=== PATIENT | female | born 1950 | race Caucasian/White ===

== ENCOUNTER 2017-09-17 11:06 | Outpatient (CLI) | payer MEDICARE, OTHER ==
--- NOTE | 2017-09-17 13:15 | Ultrasound Report ---
RIGHT UPPER QUADRANT ULTRASOUND: 09/17/2017 CLINICAL INDICATION: Elevated LFTs. TECHNIQUE: Real-time scanning was performed with retail wireless sales representative static images obtained. FINDINGS: The liver measures 12.1 cm. There are multiple echogenic structures scattered throughout b oth lobes of the liver, with the largest measuring 3.9 cm. These likely all represent hemangiomas, bu t given the elevated LFTs, liver MRI is recommended to exclude a suspicious lesion. The common bile d uct measures 3 mm. The gallbladder is unremarkable. There is a 2.2 cm periportal node noted. The righ t kidney measures 10.4 cm, and appears unremarkable. No free fluid is present. IMPRESSION: MULTIPLE ECHOGENIC LESIONS SCATTERED THROUGHOUT BOTH LOBES OF THE LIVER, LIKELY REPRESEN TING MULTIPLE HEMANGIOMAS. ENLARGED PERIPORTAL NODE. GIVEN THESE FINDINGS, AND THE ELEVATED LFTs, [facility] MRI WITH AND WITHOUT CONTRAST IS RECOMMENDED. JOB #: [id number] EXT JOB #:[id number]
== END 2017-09-17 11:07 | disposition home or self-care (01) ==
LOC: DI 11:06
PROVIDERS: ATTEND Internal Medicine
DX: K76.9 Liver disease, unspecified (principal); R59.0 Localized enlarged lymph nodes
CPT/HCPCS: 76705

== ENCOUNTER 2017-09-23 09:24 | Outpatient (CLI) | payer MEDICARE, OTHER ==
--- NOTE | 2017-09-24 10:04 | Mammography Report ---
DIGITAL SCREENING MAMMOGRAM: 09/23/2017 COMPARISON: 07/04/2016, 10/06/2013, 09/25/2010, and 09/06/2010. TECHNIQUE: Bilateral digital CC, exaggerated CC, and MLO projections. FINDINGS: The breast tissue is heterogeneously dense. There is no dominant mass, architectural dist ortion, skin thickening, suspicious new microcalcifications, or interval change. IMPRESSION: NEGATIVE. BIRADS CATEGORY 1. SUGGEST ROUTINE FOLLOWUP IN 12 MONTHS. STANDARD QUALIFYING STATEMENTS 1. This examination was reviewed with the aid of Computer-Aided Detection (CAD). 2. A negative or benign imaging report should not delay biopsy if clinically suspicious findings are present. Consider surgical consultation if warranted. More than 5% of cancers are not identified by i maging. 3. Dense breasts may obscure an underlying neoplasm. JOB #: [id number] EXT JOB #:[id number]
== END 2017-09-23 09:25 | disposition home or self-care (01) ==
LOC: DI.S 09:24
PROVIDERS: ATTEND Internal Medicine
DX: Z12.31 Encounter for screening mammogram for malignant neoplasm of breast (principal)
CPT/HCPCS: 77067

== ENCOUNTER 2017-10-06 12:50 | Outpatient (CLI) | payer MEDICARE, OTHER ==
[~2017-10-06 12:50] MED LIST: GADOBUTROL 7.5 MMOL/7.5 ML VIAL ONE
[2017-10-06 13:26] LABS: CREATININE 0.7 mg/dL (0.4-1.0)
[2017-10-06] MEDS ORDERED: GADOBUTROL 7.5 MMOL/7.5 ML VIAL IVP ONE (14:48)
--- NOTE | 2017-10-07 09:49 | MRI Report ---
EXAM: MR ABDOMEN WITH AND WITHOUT CONTRAST (MR LIVER) EXAM DATE: 10/06/2017 02:51 PM. CLINICAL HISTORY: Multiple liver lesions on ultrasound. COMPARISON: 09/17/2017. TECHNIQUE: Multiplanar breath-hold T1, T2 and diffusion-weighted sequences obtained through the abdom en on an MR scanner. Images obtained before and after administration of 6 mL Gadavist intravenous con trast. Multiphase postcontrast images obtained of the liver and abdomen. FINDINGS: Lung Bases: Lung bases are clear. Included portions of the heart are unremarkable. Liver: Signal intensity of the liver is within normal limits. Liver is not enlarged. There are approx imately 10 hepatic lesions, which are of increased signal on the T2-weighted sequences and decreased signal intensity on the precontrast and T1-weighted sequences. The largest lesion centrally is along segment 4A and segment 8 by the middle hepatic vein just anteri or to the IVC, measuring 4.3 x 3.7 x 3.7 cm. Lesion present in the left lobe in segment 2 measures 1.4 x 1.1 x 1 cm. More inferiorly at the juncti on of segment 2/3 , the lesion measures 2.1 x 1.6 x 1.7 cm, adjacent to a smaller lesion although sim ilar in size measuring 1.5 x 1.3 x 1.1 cm, with an adjacent lesion between the lesions in segment 2/3 and segment 2. Additionally, in the dome of the liver are 2 adjacent lesions in segment 8. The largest measures 1.6 x 1.2 x 1.4 cm. There are approximately 5 lesions in the right lobe of the liver more inferiorly in s egment 6 and segment 5, the largest in segment 6 measuring 1 x 1 x 1.1 cm, while the most inferior le moe in segment 6 measures 1 x 0.9 x 0.5 cm. All lesions show some enhancement on the arterial phase images. The smaller lesions in the right lobe demonstrate more prominent increase in vascularity on the arterial phase images while the remainder of the lesions have some peripheral discontinuous nodular enhancement which progresses over the cours e of the venous and more delayed images. The lesions show progressive filling on the 5 minute delayed images, and some have completely filled in and persistently enhance. The lesions are all consistent with hemangiomas. No other hepatic lesions are identified. Patent portal vein. Some dropout of signal is noted of the l iver between the in- and [id number] images, typically seen with fatty replacement. Gallbladder: The gallbladder is partially distended and appears normal with no wall thickening or sto ne. Pancreas: Homogeneous signal intensity of the pancreas. Pancreatic duct is seen throughout its entire ty. There appears to be a separate orifice into the duodenum between the common bile duct and pancrea tic duct without a common channel. Pancreatic duct measures up to 2 mm. No peripancreatic edema or pa ncreatic lesions are identified. Spleen: The spleen appears normal. Kidneys and Adrenals: The kidneys appear normal with no mass or hydronephrosis. There are no cysts in the kidneys. The adrenals appear normal. Bowel: Stomach is mildly distended and unremarkable. Included portions of the small bowel and colon a re unremarkable. No mesenteric lymph node enlargement is seen. No enlarged maricarmen hepatis lymph nodes are seen by MR. Retroperitoneum: Abdominal aorta and IVC are normal in caliber. No aneurysm. No retroperitoneal adeno thai. Mild degenerative changes of the lower thoracic and lumbar spine. IMPRESSION: 1. Multiple hepatic lesions consistent with hemangiomas in the setting of mild fatty liver. No other suspicious hepatic lesions are identified. Patent portal vein. 2. Normal gallbladder. No biliary ductal dilatation. 3. No MR evidence of pancreatitis. 4. No abdominal adenopathy. [facility] Referring Provider Line: [phone] SITE ID: [id number]
== END 2017-10-06 12:51 | disposition home or self-care (01) ==
LOC: LAB 12:50
PROVIDERS: ATTEND Internal Medicine
DX: K76.9 Liver disease, unspecified (principal)
CPT/HCPCS: 36415; 74183; 82565; A9585

== ENCOUNTER 2017-11-25 11:12 | Outpatient (CLI) | payer MEDICARE, OTHER ==
--- NOTE | 2017-11-25 14:53 | Ultrasound Report ---
DATE OF SERVICE: 11/25/2017 PELVIC ULTRASOUND: 11/25/2017 CLINICAL INDICATION: Postmenopausal bleeding. TECHNIQUE: Transabdominal pelvic ultrasound performed for global evaluation. Transvaginal pelvic ultrasound performed for detailed evaluation. Real-time scanning performed and static images obtained. FINDINGS: The uterus is anteverted, measuring 5.8 x 2.5 x 4.3 cm. The endometrium measures 4 mm. No focal myometrial lesion is present. The right ovary was not confidently identified on transabdominal or transvaginal scanning. No right adnexal mass is seen. The left ovary measures 1.7 x 1.3 x 0.9 cm, and appears unremarkable. No free fluid is present. IMPRESSION: NO EVIDENCE OF ENDOMETRIAL HYPERPLASIA. TD: 11/25/2017 14:52
== END 2017-11-25 11:13 | disposition home or self-care (01) ==
LOC: DI 11:12
PROVIDERS: ATTEND Obstetrics & Gynecology
DX: N95.0 Postmenopausal bleeding (principal)
CPT/HCPCS: 76830; 76856

== ENCOUNTER 2021-09-24 08:00 | Outpatient (CLI) | payer OTHER, MEDICARE ==
[2021-09-24 16:53] LABS: BILIRUBIN,URINE NEGATIVE (NEGATIVE); CLARITY,URINE HAZY (CLEAR); GLUCOSE, URINE (UA) NEGATIVE (NEGATIVE); KETONES,URINE (UA) NEGATIVE (NEGATIVE); LEUKOCYTE ESTERASE, URINE TRACE (NEGATIVE); NITRITE,URINE POSITIVE (NEGATIVE); OCCULT BLOOD,URINE NEGATIVE (NEGATIVE); PH,URINE 6.5 PH (5.0-7.5); PROTEIN,URINE NEGATIVE (NEGATIVE); UROBILINOGEN,URINE 0.2 (NORMAL) E.U./dL (NORMAL)
[2021-09-24 17:32] LABS: BACTERIA,URINE Many /HPF (None Seen); RBC,URINE 0-5 /HPF (0-5); SQUAMOUS EPITHELIAL CELL,UR RARE Squamous (<= Few)
== END 2021-09-24 23:59 ==
LOC: LAB.R 08:00
PROVIDERS: ATTEND Internal Medicine
DX: R03.0 Elevated blood-pressure reading, without diagnosis of hypertension (principal); R39.9 Unspecified symptoms and signs involving the genitourinary system
CPT/HCPCS: 81001; 81003; 87077; 87086; 87181

== ENCOUNTER 2021-09-25 10:53 | Outpatient (CLI) | payer OTHER, MEDICARE ==
[2021-09-25 15:17] LABS: BASOPHILS % (AUTO) 0.7 %; EOSINOPHILS # (AUTO) 0.2 10^3/uL (0.0-0.7); EOSINOPHILS % (AUTO) 3.1 %; HCT - HEMATOCRIT 44.4 % (37.0-47.0); LYMPHOCYTES % (AUTO) 34.5 %; MEAN CORPUSCULAR HEMOGLOBIN 30.3 pg (27.0-31.0); MEAN CORPUSCULAR HGB CONC 33.8 g/dL (32.0-36.0); MEAN CORPUSCULAR VOLUME 89.7 fL (81.0-99.0); MEAN PLATELET VOLUME 11.1 fL (7.9-10.8); MONOCYTES # (AUTO) 0.5 10^3/uL (0.0-1.0); NEUTROPHILS # (AUTO) 3.1 10^3/uL (1.5-6.6); NEUTROPHILS % (AUTO) 53.5 %; RED BLOOD COUNT 4.95 10^6/uL (4.20-5.40); WHITE BLOOD COUNT 5.8 x10^3/uL (4.8-10.8)
[2021-09-25 15:49] LABS: PLATELET MORPHOLOGY PLATELET CLUMPING (NORMAL)
[2021-09-25 15:50] LABS: PLATELET ESTIMATE, MANUAL DECREASED (<130,000) (NORMAL)
[2021-09-25 16:05] LABS: ALBUMIN 3.9 g/dL (3.2-5.5); ALBUMIN/GLOBULIN RATIO 1.1 (1.0-2.2); ALKALINE PHOSPHATASE 201 IU/L (42-121); ALT ALANINE AMINOTRANSFERASE 66 IU/L (10-60); AST ASPARTATE AMINOTRANSFERASE 58 IU/L (10-42); BILIRUBIN,TOTAL 0.9 mg/dL (0.2-1.0); BUN - BLOOD UREA NITROGEN 14 mg/dL (6-20); CALCIUM 9.3 mg/dL (8.5-10.3); CARBON DIOXIDE - CO2 26 mmol/L (21-32); CHLORIDE 104 mmol/L (101-111); CHOL/HDL RATIO 3.6 (<4.4); CHOLESTEROL 247 mg/dL; CREATININE 0.7 mg/dL (0.4-1.0); GFR - MDRD 82 (>89); GLUCOSE 90 mg/dL (70-100); HDL CHOLESTEROL 69 mg/dL; LDL CHOLESTEROL,CALCULATED 148 mg/dL; LDL/HDL RATIO 2.1 (<4.4); POTASSIUM 3.8 mmol/L (3.5-5.0); SODIUM 140 mmol/L (135-145); TOTAL PROTEIN 7.6 g/dL (6.7-8.2); TRIGLYCERIDES 150 mg/dL; VLDL CHOLESTEROL 30 mg/dL
[2021-09-25 19:43] LABS: ESTIMATED AVERAGE GLUCOSE 103 mg/dL (70-100); HEMOGLOBIN A1c% 5.2 % (4.27-6.07)
== END 2021-09-25 10:54 | disposition home or self-care (01) ==
LOC: LAB.S 10:53
PROVIDERS: ATTEND Internal Medicine
DX: Z13.6 Encounter for screening for cardiovascular disorders (principal); R03.0 Elevated blood-pressure reading, without diagnosis of hypertension; R74.8 Abnormal levels of other serum enzymes; K76.0 Fatty (change of) liver, not elsewhere classified; R73.01 Impaired fasting glucose
CPT/HCPCS: 36415; 80053; 80061; 83036; 83721; 84443; 85025

== ENCOUNTER 2021-11-28 09:50 | Outpatient (CLI) | payer OTHER, MEDICARE ==
--- NOTE | 2021-11-29 07:01 | Mammography Report ---
BILATERAL DIGITAL SCREENING MAMMOGRAM 3D/2D WITH EXAGGERATED CC: 11/28/2021 CLINICAL: Routine screening. Comparison is made to exams dated: 09/23/2017 mammogram and 07/04/2016 mammogram - [facility]. The tissue of both breasts is heterogeneously dense. This may lower the sensitivity of ma mmography. No significant masses, calcifications, or other findings are seen in either breast. There has been no significant interval change. IMPRESSION: NEGATIVE There is no mammographic evidence of malignancy. A 1 year screening mammogram is recommended. This exam was interpreted at Station ID: [id number]. NOTE: For mammograms, a report in lay terms will be sent to the patient. Approximately 15% of breast malignancies will not be visualized mammographically. In the management of a palpable breast mass, a negative mammogram must not discourage biopsy of a clinically suspicious lesion. Electronically Signed By: Jermaine Pantoja M.D. ar/[email or web address]:11/28/2021 11:44:52 ACR BI-RADS Category 1: Negative 3341F PARENCHYMAL PATTERN: (D) - The breast(s) demonstrate(s) heterogeneously dense fibroglandular parenchy ma. BI-RADS CATEGORY: (1) - 1 RECOMMENDATION: (ANNUAL) - Recommend routine annual screening mammography. [id number] 1 year screening LATERALITY: (B)
== END 2021-11-28 09:51 | disposition home or self-care (01) ==
LOC: DI.S 09:50
DX: Z12.31 Encounter for screening mammogram for malignant neoplasm of breast (principal)

== ENCOUNTER 2021-12-26 07:26 | Day surgery (SDC) | payer MEDICARE ==
[2021-12-26] MEDS ORDERED: LACTATED RINGERS 1,000 ML IV ONE (07:57)
--- NOTE | 2021-12-26 08:34 | ANESTHESIA ---
Pre-Anesthesia VS, & Labs - Diagnosis screening colonoscopy - Procedure colonoscopy Height: 5 ft 5 in Weight (kg): 62.7 kg Body Mass Index: 23.0 BMI Classification: Healthy weight - NPO >8 hours - Is Patient ?: No Home Medications and Allergies Home Medications: Ambulatory Orders No Known Home Medications 12/25/21 No Known Home Medications 12/25/21 Allergies/Adverse Reactions: Allergies Allergy/AdvReac Type Severity Reaction Status Date / Time No Known Drug Allergies Allergy Verified 12/26/21 07:56 Anes History & Medical History - Anesthetic History Anesthesia Complications: reports: No previous complications - Medical History Cardiovascular: reports: None Pulmonary: reports: None Gastrointestinal: reports: None Urinary: reports: None Musculoskeletal: reports: None Endocrine/Autoimmune: reports: None Skin: reports: None - Surgical History Eyes Ears Nose Throat (EENT): reports: Tonsil/Adenoidectomy Gynecologic: reports: Dilation and currettage Exam General: Alert, Oriented x3 Dental: WNL Mallampati classification: I Thyromental Distance: less than 4 cm Respiratory: Lungs clear Cardiovascular: Regular rate Plan Anesthesia Type: Total IV Consent for Procedure(s) Verified and Reviewed: Yes Code Status: Attempt Resuscitation ASA classification: 1-Healthy patient Is this case an emergency?: No
[2021-12-26] MEDS ORDERED: PROPOFOL 500 MG/50 ML 500 MG/50 ML VIAL ONE (08:59)
[2021-12-26] MEDS ORDERED: LACTATED RINGERS 300 ML IV ONE (10:12)
[2021-12-26 10:39] VITALS: BP 115/89
--- NOTE | 2021-12-26 11:45 | ANESTHESIA POST OP EVALUATION ---
Anesthesia Post Eval - Post Anesthesia Eval Vitals: Last Vital Signs Temp 36.3 C L 12/26/21 10:38 Pulse 64 12/26/21 10:38 Resp 16 12/26/21 10:38 BP 115/89 H 12/26/21 10:38 Pulse Ox 100 12/26/21 10:38 CV Function Including HR & BP: Stable Pain Control: Satisfactory Nausea & Vomiting: Negative Mental Status: Baseline Respiratory Status: Airway Patent Hydration Status: Satisfactory Anesthesia Complications: None
== END 2021-12-26 07:27 | disposition home or self-care (01) ==
LOC: SDS 07:26
PROVIDERS: ATTEND Surgery
PROC: 0DBK8ZZ Excision of Ascending Colon, Via Natural or Artificial Opening Endoscopic (ICD-10-PCS; principal; 2021-12-26 09:00)
DX: R19.5 Other fecal abnormalities (principal); D12.2 Benign neoplasm of ascending colon; K64.8 Other hemorrhoids
CPT/HCPCS: 45385; J7120

== ENCOUNTER 2023-11-03 10:42 | Outpatient (CLI) | payer MEDICARE ==
--- NOTE | 2023-11-04 15:37 | Mammography Report ---
BILATERAL DIGITAL SCREENING MAMMOGRAM 3D/2D: 11/03/2023 CLINICAL: Routine screening. Comparison is made to exams dated: 11/28/2021 mammogram, 09/23/2017 mammogram, and 07/04/2016 mammogram - [facility]. Both breasts are heterogeneously dense, which may obscure small masses (category c / 51-75% glandular tissue). No significant masses, calcifications, or other findings are seen in either breast. There has been no significant interval change. IMPRESSION: NEGATIVE There is no mammographic evidence of malignancy. A 1 year screening mammogram is recommended. Based on the Tyrer Cuzick model (a risk assessment model) the patients lifetime risk is 5.3% and her 10 year risk is 4.3%. According to the ACR, ACS, and NCCN guidelines, an annual breast MRI exam along with mammogram is recommended if the patients lifetime risk is 20% or greater. This exam was interpreted at Station ID: [id number]. NOTE: For mammograms, a report in lay terms will be sent to the patient. Approximately 15% of breast malignancies will not be visualized mammographically. In the management of a palpable breast mass, a negative mammogram must not discourage biopsy of a clinically suspicious lesion. Electronically Signed By: Emiliana weldon/naveen:11/03/2023 14:45:36 ACR BI-RADS Category 1: Negative 3341F PARENCHYMAL PATTERN: (D) - The breast(s) demonstrate(s) heterogeneously dense fibroglandular piyush jha. BI-RADS CATEGORY: (1) - 1 Mammogram [id number] 1 year screening LATERALITY: (B)
== END 2023-11-03 10:43 | disposition home or self-care (01) ==
LOC: DI.S 10:42
DX: Z12.31 Encounter for screening mammogram for malignant neoplasm of breast (principal); R92.333 Mammographic heterogeneous density, bilateral breasts